=== PATIENT | female | born 1990 | race Caucasian/White ===

== ENCOUNTER 2024-10-30 12:07 | Emergency (ER) | payer MEDICAID ==
[~2024-10-30] VITALS: Ht 165.1 cm; Wt 107.0 kg
[2024-10-30 12:45] LABS: HEMATOCRIT. 39.6 % (36.0-48.0); HEMOGLOBIN. 13.2 g/dL (12.0-16.0); MEAN CORPUSCULAR HEMOGLOBIN 28.4 pg (28.0-32.0); MEAN CORPUSCULAR HGB CONC 33.4 g/dL (31.0-37.0); MEAN CORPUSCULAR VOLUME 85.3 fL (81.0-99.0); MEAN PLATELET VOLUME 7.8 fl (7.4-10.4); PLATELET 177 x1000/uL (130-400); RED BLOOD CELL COUNT 4.64 mill/uL (4.2-5.4); WHITE BLOOD COUNT 3.9 x1000/uL (4.5-11.0)
[2024-10-30 12:47] LABS: DIFFERENTIAL COMMENT 1
[2024-10-30 12:53] LABS: CHLORIDE 108 mEq/L (98-107); POTASSIUM 3.9 mEq/L (3.5-5.1); SODIUM 143 mEq/L (136-145)
[2024-10-30 12:54] LABS: CALCIUM 10.3 mg/dL (8.7-10.4); CARBON DIOXIDE 26 mEq/L (21-32)
[2024-10-30 12:59] LABS: CREATININE 0.7 mg/dL (0.6-1.0); GLUCOSE 99 mg/dL (70-105); UREA NITROGEN BLOOD 7 mg/dL (9-23)
[2024-10-30] MEDS ORDERED: DEXAMETHASONE 4MG/ML 1ML VIAL IM ONE (13:45)
[2024-10-30] MEDS: KETOROLAC 30MG/ML VIAL IM ONE (13:45)
[2024-10-30 13:49] LABS: PLATELET ESTIMATE NORMAL
[2024-10-30] MEDS: IPRATROPIUM/ALBUTEROL 0.5-3(2.5)MG/3ML NEB HHN ONE (13:58)
[2024-10-30 13:59] VITALS: PULSE 96; RESP 20; O2SAT 99
[2024-10-30] MEDS: DEXAMETHASONE 4MG/ML 1ML VIAL IM NR (14:15)
[2024-10-30 14:33] LABS: TROPONIN I HIGH SENSITIVITY < 4 ng/L (3.0-34)
[2024-10-30] MEDS ORDERED: ALBU90AE INH (14:54)
[2024-10-30] MEDS ORDERED: IBUP-2029 MT (14:54)
[2024-10-30] MEDS ORDERED: P50 MT (14:54)
[2024-10-30 15:05] VITALS: BP 109/70; PULSE 98; RESP 18; TEMP 37; O2SAT 100
[2024-11-02] MEDS ORDERED: LEVO25TA7 PO (11:17)
[2024-11-03] MEDS ORDERED: ALBU18HF2 IH (15:54)
[2024-11-03] MEDS ORDERED: METH4TAB95 MT (15:54)
== END 2024-10-30 15:06 | disposition home or self-care (01) ==
LOC: ER 12:07
DX: J20.9 Acute bronchitis, unspecified (principal); Z79.899 Other long term (current) drug therapy
CPT/HCPCS: 80048; 81025; 85025; 84484; 36415; 71045; 94640; 93005; 94070; 96372; 99285; J1100; J1885; Z7610 ×4